=== PATIENT | female | born 1980 | race Caucasian/White ===

== ENCOUNTER 2022-08-22 13:37 | Outpatient (CLI) | payer OTHER, SELFPAY | END 2022-08-22 13:38 | disposition home or self-care (01) | PROVIDERS: Visit Provider Obstetrics & Gynecology | DX: Z01.419 Encounter for gynecological examination (general) (routine) without abnormal findings (principal); E66.9 Obesity, unspecified; N64.3 Galactorrhea not associated with childbirth; Z13.6 Encounter for screening for cardiovascular disorders | CPT/HCPCS: 80061; 84146; 84443 ==

== ENCOUNTER 2022-10-18 09:58 | Outpatient (CLI) | payer OTHER, SELFPAY ==
--- NOTE | 2022-10-18 10:15 | CRLHL7_ITS ---
For Patients: As a result of the Century Cures Act, medical imaging exams and procedure reports are released immediately into your electronic medical record. You may view this report before your referring provider. If you have questions, please contact your health care provider. BILATERAL SCREENING MAMMOGRAM WITH COMPUTER-AIDED DETECTION AND TOMOSYNTHESIS TECHNIQUE: CC and MLO views were obtained. These mammographic images have been obtained using full-field digital technique. These mammographic images were interpreted with the benefit of computer-aided detection. Breast Tomosynthesis was used in this interpretation. COMPARISON FILM: Baseline. FINDINGS: There are scattered areas of fibroglandular density IMPRESSION: There is no radiographic evidence for malignancy. ASSESSMENT: BI-RADS Category 1: Negative RECOMMENDATION: Routine screening mammogram in 1 year. A lay language report of this examination will be provided to the patient. Ramo De Santiago M.D. Diagnostic Radiologist [email or web address] WON/Dictated by: Ramo De Santiago MD @ 10/18/2022 12:46:00 PM (Electronically Signed)
== END 2022-10-18 09:59 | disposition home or self-care (01) ==
LOC: MAMMO 10:00
PROVIDERS: PCP Radiology Diagnostic Radiology; Visit Provider Radiology Diagnostic Radiology
DX: Z12.31 Encounter for screening mammogram for malignant neoplasm of breast (principal)
CPT/HCPCS: 77063; 77067

== ENCOUNTER 2025-04-12 19:31 | Outpatient (CLI) | payer OTHER, SELFPAY | END 2025-04-12 19:32 | disposition home or self-care (01) | PROVIDERS: PCP Radiology Diagnostic Radiology | DX: R21 Rash and other nonspecific skin eruption (principal) | CPT/HCPCS: 85651; 86140 ==

== ENCOUNTER 2025-04-22 15:38 | Outpatient (CLI) | payer OTHER, SELFPAY | END 2025-04-22 15:39 | disposition home or self-care (01) | PROVIDERS: PCP Internal Medicine; Visit Provider Internal Medicine | DX: B94.9 Sequelae of unspecified infectious and parasitic disease (principal); D69.0 Allergic purpura | CPT/HCPCS: 80053; 85610; 85730 ==

== ENCOUNTER 2025-06-16 12:27 | Outpatient (CLI) | payer OTHER, SELFPAY ==
[2025-06-16 12:44] LABS: Appearance Urine Clear (Clear)
[2025-06-16 12:55] LABS: Chloride* 99 mmol/L (96-114)
[2025-06-16 12:56] LABS: Albumin* 5.0 g/dL (3.3-5.0); Potassium* 4.3 mmol/L (3.6-5.1); Sodium* 137 mmol/L (135-149)
[2025-06-16 12:58] LABS: Alanine Aminotransferase* 24 U/L (4-35); Anion Gap 11 mEq/L (7-15); Aspartate Amino Transferase* 23 U/L (12-35); Blood Urea Nitrogen* 13 mg/dL (5-24); Carbon Dioxide* 27 mmol/L (20-32); Creatinine* 0.8 mg/dL (0.5-1.5); Estimated Glomerular Filt Rate 93 ml/min
[2025-06-16 12:59] LABS: Alkaline Phosphatase* 63 U/L (40-150); Bilirubin Total* 0.7 mg/dL (0.1-1.5); Calcium* 10.2 mg/dL (8.4-10.6); Glucose* 126 mg/dL (60-115); Total Protein* 8.3 g/dL (6.0-8.3)
== END 2025-06-16 12:28 | disposition home or self-care (01) ==
PROVIDERS: PCP Internal Medicine; Visit Provider Student in an Organized Health Care Education/Training Program
DX: L95.8 Other vasculitis limited to the skin (principal)
CPT/HCPCS: 36415; 80053; 81001; 87086